=== PATIENT | female | born 1990 | race Two or more races ===

== ENCOUNTER 2020-04-21 11:26 | Observation (INO) | payer OTHER ==
[2016-04-22 22:49] VITALS: BP 109/69
[~2020-04-21 11:26] MED LIST: ACET-704 PO; AMOX500C PO
[2020-04-21] MEDS ORDERED: IV RINGERS,LACTATED 1000ML 1,000 ML IV SCH (12:00)
[2020-04-21 12:17] LABS: BILIRUBIN,URINE NEGATIVE (NEG); CLARITY,URINE CLEAR; COLOR,URINE YELLOW; NITRITE,URINE NEGATIVE (NEG); PROTEIN,URINE NEGATIVE (NEG-TRACE); UROBILINOGEN,URINE 0.2 mg/dL (0.2 mg/dL)
[2020-04-21 12:24] LABS: BARBITURATES NEG (NEG); BENZODIAZEPINES NEG (NEG); CANNABINOIDS NEG (NEG); COCAINE NEG (NEG); METHADONE NEG (NEG); OPIATES NEG (NEG); PHENCYCLIDINE NEG (NEG)
[2020-04-21 12:25] LABS: AMPHETAMINE/METHAMPHETAMINE NEG (NEG)
[2020-04-21 12:31] LABS: SQUAMOUS EPITHELIAL CELL,UR MOD /LPF
[2020-04-21 12:32] LABS: AMORPHOUS SEDIMENT,UR PRESENT /HPF; BACTERIA,URINE 0 /HPF (0-FEW); RBC,URINE 0 /HPF (0-2); WBC,URINE OCC /HPF (0-4)
[2020-04-21] MEDS ORDERED: hydrOXYzine IM 50 MG/ML VIAL IM ONE (13:30)
== END 2020-04-21 14:15 | disposition home or self-care (01) ==
LOC: 3 SO LND 11:26
PROVIDERS: ADMIT Obstetrics & Gynecology; ATTEND Obstetrics & Gynecology
DX: O26.893 Other specified pregnancy related conditions, third trimester (principal); M54.9 Dorsalgia, unspecified; Z3A.30 30 weeks gestation of pregnancy
CPT/HCPCS: 80307; 81001; 96372; G0378; G0379; J3410; J7120